=== PATIENT | female | born 1985 | race Hispanic/Latino ===

== ENCOUNTER 2020-10-29 13:08 | Outpatient (CLI) | payer OTHER | END 2020-10-29 13:09 | disposition home or self-care (01) | LOC: CSHULT 13:08 | PROVIDERS: ATTEND Family Medicine | DX: Z34.82 Encounter for supervision of other normal pregnancy, second trimester (principal) | CPT/HCPCS: 76805 ==

== ENCOUNTER 2023-09-21 15:16 | Outpatient (CLI) | payer OTHER | END 2023-09-21 15:17 | disposition home or self-care (01) | LOC: CSHULT 15:16 | PROVIDERS: ATTEND Nurse Practitioner Women's Health | DX: Z34.82 Encounter for supervision of other normal pregnancy, second trimester (principal); Z3A.23 23 weeks gestation of pregnancy | CPT/HCPCS: 76805 ==

== ENCOUNTER 2024-01-04 12:06 | Inpatient (IN) | payer MEDICAID, OTHER, SELFPAY ==
[2024-01-05 22:00] VITALS: BMI 26.6
[2024-01-05] MEDS ORDERED: Lidocaine 1% (PF) 30 ML VIAL SC PRN (22:00)
[2024-01-05] MEDS ORDERED: Oxytocin 30 units/NS 500 ML 500 ML IV SCH ×3 (22:00)
[2024-01-05] MEDS ORDERED: HYDROcodone/Acetaminophen 5/325 mg Tablet PO PRN (22:00)
[2024-01-05] MEDS ORDERED: hydrALAZINE 20 MG/ML VIAL SLOW IVP PRN (22:00)
[2024-01-05] MEDS ORDERED: Carboprost 250 MCG/ML AMP IM PRN (22:00)
[2024-01-05] MEDS ORDERED: Tranexamic Acid 1,000 MG/10 ML VIAL IVP PRN (22:00)
[2024-01-05] MEDS ORDERED: Methylergonovine 0.2 MG/ML VIAL IM PRN (22:00)
[2024-01-05] MEDS ORDERED: Ondansetron PF 4 MG/2 ML Vial IVP PRN (22:00)
[2024-01-05] MEDS ORDERED: Misoprostol 200 MCG TAB PR PRN (22:00)
[2024-01-05] MEDS ORDERED: Promethazine HCl 25 MG/ML VIAL IM PRN (22:00)
[2024-01-05] MEDS ORDERED: Acetaminophen 500 MG TAB PO PRN (22:00)
[2024-01-05] MEDS ORDERED: fentaNYL 50 mcg/mL 1 mL Vial SLOW IVP PRN (22:00)
[2024-01-05] MEDS ORDERED: Diphenoxylate HCl/Atropine Tablet PO PRN (22:00)
[2024-01-05] MEDS: Lactated Ringer's 1,000 ML IV SCH (22:30)
[2024-01-05 22:57] LABS: Hematocrit 32.6 % (34.9-44.5); Hemoglobin 11.6 g/dL (12.0-15.5); Mean Corpuscular HGB CONC 35.6 g/dL (32.0-36.0); Mean Corpuscular Hemoglobin 31.4 pg (27.0-33.0); Mean Corpuscular Volume 88.3 fL (81.6-98.3); Mean Platelet Volume 11.6 fL (7.4-10.4); Platelet Count 177 10x3/uL (150-450); RBC Distribution Width 14.5 % (11.5-14.5); Red Blood Cell (RBC) Count 3.69 10x6/uL (3.90-5.03); White Blood Cell (WBC) Count 4.8 10x3/uL (3.5-10.5)
[2024-01-05] MEDS: Misoprostol 100 MCG TAB PO SCH (23:15)
[2024-01-06] MEDS: Penicillin G Potassium 5 MILL.UNITS in Sodium Chloride 0.9% 100 ML IVPB SCH (00:05)
[2024-01-06] MEDS: Misoprostol 100 MCG TAB PO SCH (00:06)
[2024-01-06 00:18] LABS: Syphilis Antibody Nonreactive (Nonreactive); Syphilis Antibody Index 0.06 S/CO (<1.00 Non-Reactive)
[2024-01-06 00:27] LABS: HBsAg Index 0.22 S/CO (0-0.99); Hep B Surf Ag - L&D Non-Reactive S/CO (NonReactive)
[2024-01-06] MEDS: Penicillin G 2.5 MILL.units 2.5 MILL.UNITS in Premix 1 BAG IVPB SCH (05:44)
[2024-01-06] MEDS ORDERED: ePHEDrine Sulfate 50 MG/10 ML VIAL SLOW IVP PRN (07:56)
[2024-01-06] MEDS ORDERED: diphenhydrAMINE 50 MG/ML VIAL IVP PRN (07:56)
[2024-01-06] MEDS ORDERED: Ondansetron PF 4 MG/2 ML Vial IVP PRN ×2 (07:56→19:13)
[2024-01-06] MEDS ORDERED: Naloxone HCl 0.4 mg/ml Vial IVP PRN ×2 (07:56)
[2024-01-06] MEDS ORDERED: Moisturizing Cream (Eucerin) 113 GM JAR TOP PRN (07:56)
[2024-01-06] MEDS ORDERED: Promethazine HCl 25 MG/ML VIAL IM PRN ×2 (07:56→19:13)
[2024-01-06] MEDS ORDERED: Acetaminophen 325 MG TAB PO PRN (07:56)
[2024-01-06] MEDS ORDERED: Lactated Ringer's 500 ML IV PRN (07:56)
[2024-01-06] MEDS ORDERED: fentaNYL 2 mcg/Ropivacaine 0.2% Epidural 100 ML CADD EPIDURAL SCH (08:00)
[2024-01-06] MEDS ORDERED: Communication Order-Pharmacy FS SCH (08:00)
[2024-01-06] MEDS: Ibuprofen 800 MG TAB PO PRN (14:20)
[2024-01-06 16:26] LABS: Creatinine, Urine Less than 20.00 mg/dL (47-110); Protein, Urine Random Quant 14 mg/dL (1-14)
[2024-01-06] MEDS: Phytonadione Neonatal 1 MG/0.5 ML AMP ONE (18:03)
[2024-01-06] MEDS: Erythromycin Base 0.5% Oint 1 GM TUBE ONE (18:03)
[2024-01-06] MEDS: Hepatitis B Vaccine 10 MCG/0.5 ML SYR ONE (18:03)
[2024-01-06] MEDS ORDERED: hydrALAZINE 20 MG/ML VIAL SLOW IVP PRN (19:13)
[2024-01-06] MEDS ORDERED: Benzocaine-Menthol 82.5 ML CAN TOP PRN (19:13)
[2024-01-06] MEDS ORDERED: Boostrix 0.5 ML (Tdap) VIAL (>/=7 yrs of age) IM ONE (19:13)
[2024-01-06] MEDS ORDERED: Bisacodyl 10 MG SUPP PR PRN (19:13)
[2024-01-06] MEDS ORDERED: Lanolin Ointment 7 GM TUBE TOP PRN (19:13)
[2024-01-06] MEDS ORDERED: diphenhydrAMINE 25 MG CAP PO PRN (19:13)
[2024-01-06] MEDS ORDERED: Milk Of Magnesia 30 ML UDCUP PO PRN (19:13)
[2024-01-06] MEDS: fentaNYL/Ropivacaine Epidural 100 ML ONE (20:13)
[2024-01-06] MEDS: Ibuprofen 800 MG TAB PO SCH (21:15)
[2024-01-06] MEDS: Docusate 100 MG CAP PO SCH (21:16)
[2024-01-07] MEDS: HYDROcodone/Acetaminophen 5/325 mg Tablet PO PRN (01:10)
[2024-01-07] MEDS: Prenatal Vitamin 1 TAB PO SCH (08:30)
[2024-01-07] MEDS: Ferrous Sulfate 325 MG TAB PO SCH (09:32)
[2024-01-08 07:46] VITALS: BP 115/58; TEMP 97.8
== END 2024-01-08 15:20 | disposition home or self-care (01) | DRG 807 ==
LOC: CSHLD 01-05 21:05 → CSHPP 01-06 16:15
PROVIDERS: ADMIT Family Medicine; ATTEND Family Medicine
PROC: 10E0XZZ Delivery of Products of Conception, External Approach (ICD-10-PCS; principal; 2024-01-06)
PROC: 0HQ9XZZ Repair Perineum Skin, External Approach (ICD-10-PCS; 2024-01-06)
PROC: 3E0P7VZ Introduction of Hormone into Female Reproductive, Via Natural or Artificial Opening (ICD-10-PCS; 2024-01-06)
DX: O48.0 Post-term pregnancy (principal); Z37.0 Single live birth; O09.523 Supervision of elderly multigravida, third trimester; Z3A.40 40 weeks gestation of pregnancy; O70.0 First degree perineal laceration during delivery; Z79.82 Long term (current) use of aspirin; O99.824 Streptococcus B carrier state complicating childbirth
CPT/HCPCS: 82570; 84156; 85027; 86780; 86850; 86900; 86901; 87340; J2540; J3490; J7120